=== PATIENT | female | born 1965 | race Caucasian/White ===

== ENCOUNTER 2018-01-29 11:58 | Inpatient (IN) | payer MEDICARE ==
[2018-01-29] MEDS ORDERED: Metoclopramide 10 MG/2 ML SDV IVPUSH PRN (12:26)
[2018-01-29] MEDS ORDERED: Lactated Ringers 1,000 ML IV ONE (12:30)
[2018-01-29] MEDS ORDERED: Iohexol 300 MG/ML 30 ML Bottle PO ONE (12:37)
[2018-01-29] MEDS: Pantoprazole 40 MG Vial IV SCH (14:14)
[2018-01-29] MEDS ORDERED: Iopamidol 612 MG/ML 150 ML Bottle IV PRN (14:26)
[2018-01-29] MEDS ORDERED: Sodium Chloride 0.9% 10 ML Syringe FLUSH PRN (14:26)
--- NOTE | 2018-01-29 15:01 | CT ---
Abdomen Pelvis w Cont HISTORY: Abdominal pain COMPARISON: CT scan 09/30/2007. FINDINGS: Prior gastric bypass. There is dilated loops of large bowel that is primarily fluid-filled. Sigmoid colon is redundant. The small bowel is normal in caliber distal bypass anastomosis appears u nremarkable. There is some new intrahepatic and extrahepatic bile duct dilatation. No focal liver lesions seen. Prior cholecystectomy. The spleen, pancreas, adrenal glands, abdominal a roseann and kidneys appear unremarkable. Pelvis unremarkable. Impression: 1. Slightly dilated colon that is primarily fluid-filled. The mid to distal sigmoid colon is normal i n caliber which could represent peristalsis or spasm. This could are present mild colonic ileus. No e vidence for small bowel dilatation. 2. New intrahepatic and extrahepatic bile duct dilatation without obstructing stone or mass. This cou ld be correlated with liver enzymes studies. 3. Prior gastric bypass..
[2018-01-29] MEDS: Dextrose 5%-Lactated Ringers 1,000 ML IV SCH (18:00)
[2018-01-29] MEDS ORDERED: Potassium Chloride 100 ML ONE (18:32)
[2018-01-29] MEDS: oxyCODONE 5 MG Tab PO PRN (18:36)
[2018-01-29] MEDS: Potassium Chloride 20 MEQ, Lidocaine 1% 2 ML in Sodium Chloride 0.9% 100 ML IV SCH ×2 (18:39→19:13)
[2018-01-29] MEDS ORDERED: MELATONIN PO SCH (21:00)
[2018-01-29] MEDS ORDERED: PYRIDOXINE HCL PO SCH (21:00)
[2018-01-29] MEDS: Triamcinolone Acetonide 0.1% Crm 15 GM Tube TOP SCH (21:33)
[2018-01-29] MEDS: Methocarbamol 500 MG Tab PO SCH (21:38)
[2018-01-29] MEDS: hydrOXYzine HCl 25 MG Tab PO PRN (21:38)
[2018-01-29] MEDS: ClonazePAM 1 MG Tab PO SCH (21:38)
[2018-01-29] MEDS: Ondansetron 4 MG/2 ML SDV IVPUSH PRN (22:12)
[2018-01-30] MEDS: Dextrose 5%-Lactated Ringers 1,000 ML IV SCH ×5 (02:56→23:39)
[2018-01-30] MEDS: Potassium Chloride 20 MEQ, Lidocaine 1% 2 ML in Sodium Chloride 0.9% 100 ML IV SCH (03:04)
[2018-01-30] MEDS: oxyCODONE 5 MG Tab PO PRN ×2 (03:10→13:46)
[2018-01-30] MEDS: Pantoprazole 40 MG Vial IV SCH ×2 (03:39→16:39)
[2018-01-30] MEDS: ClonazePAM 1 MG Tab PO SCH ×3 (08:44→20:59)
[2018-01-30] MEDS: Propranolol 60 MG Cap.ER PO SCH (08:44)
[2018-01-30] MEDS: Methocarbamol 500 MG Tab PO SCH ×3 (08:44→20:59)
[2018-01-30] MEDS: Desvenlafaxine 50 MG Tab.ER PO SCH (08:44)
[2018-01-30] MEDS ORDERED: Triamcinolone Acetonide 0.1% Crm 15 GM Tube TOP PRN (09:19)
[2018-01-30] MEDS: hydrOXYzine HCl 25 MG Tab PO PRN (09:42)
[2018-01-30] MEDS ORDERED: MVI, Adult with Vitamin K 10 ML, Thiamine 100 MG, Magnesium Sulfate 2 GM, Folic Acid 1 ... IV ONE ×5 (10:00)
[2018-01-30] MEDS: Triamcinolone Acetonide 0.1% Crm 15 GM Tube TOP SCH (10:56)
[2018-01-30] MEDS ORDERED: ClonazePAM 1 MG Tab PO ONE (16:15)
[2018-01-30] MEDS: hydrOXYzine HCl 25 MG Tab PO SCH ×2 (16:38→21:00)
[2018-01-30] MEDS: Melatonin 3 MG Tab PO SCH (21:00)
[2018-01-31] MEDS: oxyCODONE 5 MG Tab PO PRN ×4 (00:15→22:27)
[2018-01-31] MEDS: Pantoprazole 40 MG Vial IV SCH ×2 (03:30→14:46)
[2018-01-31] MEDS: Dextrose 5%-Lactated Ringers 1,000 ML IV SCH ×3 (06:17→20:50)
[2018-01-31] MEDS ORDERED: Midazolam 1 MG/ML 2 ML SDV ONE (07:06)
[2018-01-31] MEDS ORDERED: fentaNYL 100 MCG/2 ML SDV ONE (07:06)
[2018-01-31] MEDS ORDERED: Propofol 200 MG/20 ML SDV ONE (07:07)
[2018-01-31] MEDS: Methocarbamol 500 MG Tab PO SCH ×4 (07:19→22:08)
[2018-01-31] MEDS ORDERED: Glycopyrrolate 0.2 MG/ML 2 ML SDV IVPUSH ONE (08:00)
[2018-01-31] MEDS: hydrOXYzine HCl 25 MG Tab PO SCH ×3 (09:25→22:08)
[2018-01-31] MEDS: Desvenlafaxine 50 MG Tab.ER PO SCH (09:26)
[2018-01-31] MEDS: Propranolol 60 MG Cap.ER PO SCH (09:26)
[2018-01-31] MEDS: ClonazePAM 1 MG Tab PO SCH ×3 (09:39→22:15)
[2018-01-31] MEDS: Ondansetron 4 MG/2 ML SDV IVPUSH PRN ×3 (10:32→20:09)
[2018-01-31] MEDS: Calcium Carbonate 500 MG Tab.Chew PO PRN ×2 (16:02→22:29)
[2018-01-31] MEDS: Magnesium Citrate Solution 296 ML Bottle PO SCH ×3 (16:03→20:09)
[2018-01-31] MEDS ORDERED: Bisacodyl 5 MG Tab PO ONE (18:00)
[2018-01-31] MEDS: Melatonin 3 MG Tab PO SCH (22:07)
[2018-02-01] MEDS: Pantoprazole 40 MG Vial IV SCH (02:27)
[2018-02-01] MEDS: Dextrose 5%-Lactated Ringers 1,000 ML IV SCH ×2 (06:18→15:32)
[2018-02-01] MEDS ORDERED: Midazolam 1 MG/ML 2 ML SDV ONE (06:48)
[2018-02-01] MEDS ORDERED: fentaNYL 100 MCG/2 ML SDV ONE (06:48)
[2018-02-01] MEDS ORDERED: Propofol 200 MG/20 ML SDV ONE (06:49)
[2018-02-01] MEDS: hydrOXYzine HCl 25 MG Tab PO SCH ×3 (09:24→20:39)
[2018-02-01] MEDS: Desvenlafaxine 50 MG Tab.ER PO SCH (09:24)
[2018-02-01] MEDS: Propranolol 60 MG Cap.ER PO SCH (09:24)
[2018-02-01] MEDS: ClonazePAM 1 MG Tab PO SCH ×3 (09:24→20:38)
[2018-02-01] MEDS: Methocarbamol 500 MG Tab PO SCH ×3 (09:24→20:38)
[2018-02-01] MEDS: oxyCODONE 5 MG Tab PO PRN ×2 (09:31→15:31)
--- NOTE | 2018-02-01 14:57 | PN ---
DATE OF SERVICE: 01/31/2018 The patient has been afebrile with stable vital signs. She continues to have some frequent loose bowel movements and passed undigested peas and other vegetables that she ate last night. The plan will be to proceed with an upper GI endoscopy today. If this is negative, we will most likely proceed with a colonoscopy tomorrow so as to rule out problems such as colitis and such. Uriel Peña MD /[id number]
[2018-02-01] MEDS: Pantoprazole 40 MG Tab.CR PO SCH (15:39)
[2018-02-01] MEDS: Melatonin 3 MG Tab PO SCH (20:38)
[2018-02-02] MEDS: oxyCODONE 5 MG Tab PO PRN ×2 (00:26→06:24)
[2018-02-02] MEDS: Dextrose 5%-Lactated Ringers 1,000 ML IV SCH (01:51)
[2018-02-02] MEDS: Pantoprazole 40 MG Tab.CR PO SCH (07:37)
[2018-02-02] MEDS: Methocarbamol 500 MG Tab PO SCH (07:38)
[2018-02-02] MEDS ORDERED: Ondansetron 4 MG Tab.DIS PO PRN (09:02)
[2018-02-02] MEDS: hydrOXYzine HCl 25 MG Tab PO SCH (09:28)
[2018-02-02] MEDS: Desvenlafaxine 50 MG Tab.ER PO SCH (09:29)
[2018-02-02] MEDS: ClonazePAM 1 MG Tab PO SCH (09:29)
[2018-02-02] MEDS: Propranolol 60 MG Cap.ER PO SCH (09:29)
--- NOTE | 2018-02-02 09:46 | PN ---
DATE OF SERVICE: 01/30/2018 HISTORY OF PRESENT ILLNESS: Le reports pain on the pain scale of 1-10, as 6/10. She is getting oxycodone for pain 10 mg every 6 hours. She has had no nausea during the night. Pain today is in her lower right and left abdominal quadrants. She has had 3 bowel movements since admission and voiding without difficulty. Oral intake is 240, which she is on ice chips. Urine output was 2,275. REVIEW OF SYSTEMS: LUNGS: Denies any chest pain or shortness of breath. No cough. EXTREMITIES: Chronic back and leg pain. SKIN: Without rash. All 12 systems were reviewed and negative for any other pertinent positives and negatives. OBJECTIVE: GENERAL: Le is a 52-year-old female. She is lying in bed with a stocking cap pulled over her eyes. Denies headache. VITAL SIGNS: TPR is 97.6, 67, 16, blood pressure 120/74. HEENT: Negative. NECK: Supple. HEART: Regular rate and rhythm. LUNGS: Clear. ABDOMEN: Minimal tenderness in the low abdominal quadrants, flat, nondistended. EXTREMITIES: SCDs are on. There is no peripheral edema. DIAGNOSTIC DATA: CT results revealed slightly dilated colon that is primarily fluid-filled. The mid to distal sigmoid colon is normal in caliber, which would represent peristalsis or spasm. This could be mild colonic ileus. No evidence of small bowel dilatation. New intrahepatic and extrahepatic bile duct dilation without obstructing stone or mass. ASSESSMENT: 1. Generalized abdominal pain on admission. 2. Unspecified diarrhea, Clostridium difficile negative. 3. Intractable nausea, vomiting, and dry heaves. 4. SP Sue-en-Y gastric bypass surgery. 5. Vitamin B12 deficiency. 6. Vitamin D deficiency. 7. Dehydration, resolved with IV fluids. 8. Chronic back pain and chronic myelocytic leukemia. 9. Elevated liver function tests. AST was 149, ALT 149, alkaline phosphatase 275, and these were decreased today to 56, 83, and 189 respectively. PLAN: 1. Regular diet and she can choose what sounds good to her. 2. Communication order written to keep track of number of stools. 3. Check CBC, CMP, magnesium, and phosphorus in a.m. 4. We will consult with Uriel Peña M.D. later today. Good pulmonary toilet. Jennifer Trinidad PA-C /[id number]
--- NOTE | 2018-02-02 10:58 | OR ---
DATE OF PROCEDURE: 02/01/2018 PREOPERATIVE DIAGNOSIS: Recent diarrhea/frequent loose bowel movements, possible colitis on CT scan. POSTOPERATIVE DIAGNOSIS: Grossly normal colorectal examination. OPERATIVE PROCEDURE: Flexible colonoscopy with: 1. Random biopsies of colon and rectum to rule out microscopic colitis. 2. Stool collection for C and S and C. difficile enterotoxin assay. ANESTHESIA: IV sedation. INDICATION FOR PROCEDURE: Please see the attached progress notes. Potential risks of the procedure including bleeding and perforation were discussed, and the patient wishes to proceed. DETAILS OF PROCEDURE: The patient was taken to the operating room and placed in a left lateral decubitus position. IV sedation was administered, after which the initial digital rectal exam was performed and it was unremarkable. Colonoscope was then passed into the rectum with retroflexion revealing uncomplicated hemorrhoidal columns. The scope was eventually passed through the ileocecal valve. To that level, the prep was quite good, there was only a small amount of faintly green liquid stool, some of this was evacuated and sent for cultures and C. difficile enterotoxin assay. The mucosa however was otherwise entirely normal. There were no areas of colitis grossly evident, and no polyps or other signs of neoplasia, and no diverticula identified. As one moved the scope backward, random colorectal biopsies through the length of the colon and rectum were obtained to rule out microscopic colitis. Minimal bleeding from the biopsy site was seen and the procedure was then concluded. The patient was taken to the recovery room in satisfactory condition. Uriel Pñea MD /[id number]
--- NOTE | 2018-02-02 12:26 | PN ---
DATE OF SERVICE: 02/01/2018 The patient has been afebrile with stable vital signs. She did have a fair bit of liquid intake yesterday and had a colonoscopy this morning, which was grossly normal. Given this, we will try feeding her today. We will move up to a solid diet and see how that goes upper and lower endoscopy thus far have been basically negative. Uriel Peña MD /[id number]
--- NOTE | 2018-02-03 10:41 | DISCH ---
ADMISSION DIAGNOSES: Nausea and vomiting, weight loss of 30 pounds, generalized abdominal pain, dehydration, SP Sue-en-Y gastric bypass surgery, unspecified surgical malabsorption, B12 deficiency, vitamin D deficiency, chronic pain on "treatment." DISCHARGE DIAGNOSES: EGD on 01/31/2018 and colonoscopy with biopsies 02/02/2018. Continuation of frequent loose stools. No resolution of nausea and vomiting. HISTORY: Le presented to the clinic with a month long history of diarrhea, nausea, and vomiting. She had several visits to the emergency department in [facility]. She was advised to come back to [place] to the [facility]. She was admitted to the hospital on 01/29/2018. She had an EGD and colonoscopy, both of which were negative. A CT scan was negative, and generalized abdominal pain resolved. She had no further nausea or vomiting. She continued to have loose stools but improved to manageable. REVIEW OF SYSTEMS: CONSTITUTIONAL: No fever, chills, or night sweats. SKIN: No rashes or pigment changes. HEENT: Negative for headache, ear pain, loss of hearing, blurred or double vision. CARDIOVASCULAR: No chest pain, shortness of breath, or palpitations. RESPIRATORY: No cough. ENDOCRINE: Negative. HEMATOLOGY: CML in remission. LYMPHATICS: Denies any lymph node tenderness. : Negative. MUSCULOSKELETAL: Chronic low back pain, shoulder pain, and joint pain. NEUROLOGIC: Negative. PSYCHIATRIC: Major depression in remission. Remainder of review of systems is negative for any pertinent positives and negatives. OBJECTIVE: GENERAL: Le Sunshine is a 52-year-old female. She is alert and orientated. VITAL SIGNS: Height is 5 feet 5 inches. Weight is 213 pounds. TPR is 97.8, 74, 14, blood pressure 128/57. HEENT: Negative. NECK: Supple. HEART: Regular rate and rhythm. LUNGS: Clear. ABDOMEN: Very minimally tender in all 4 quadrants. : Deferred. EXTREMITIES: Negative. NEUROLOGIC: Cranial nerves II through XII intact. PSYCHIATRIC: Negative. DISPOSITION: Discharged to home. CONDITION: Stable and improving. FOLLOWUP APPOINTMENT: With Jennifer Trinidad PA-C at [facility] on 02/10/2018 at 9:15 a.m. She is to be scheduled for a nutritional support group, with Jodie Treadbar, RD, from 10:00 a.m. to 11:00 a.m. the same day. MEDICATIONS ON DISCHARGE: There are no new prescriptions. She is to increase her probiotic to 2 b.i.d. Continue same medications of ascorbic acid 1000 mg daily, biotin 14600 mcg oral daily, calcium citrate 1 tablet twice daily, vitamin D 5000 international units daily, cranberry extract one daily, B12 2500 mcg oral daily, Pristiq 50 mg oral daily, Tofranil 150 mg oral every evening, magnesium oxide 400 at bedtime, melatonin 10 mg at bedtime, Robaxin 500 mg oral at bedtime, Robaxin 2 tablets oral before breakfast and 500 mg oral before dinner, multivitamin 1 tablet twice a day changed to chewable omega-3 at 1000 mg oral daily, Zofran continue as before 4 mg every 8 hours p.r.n. nausea, potassium gluconate 99 mg oral daily as needed for hypokalemia, Inderal LA 60 mg oral daily, triamcinolone cream 0.1% topical twice a day, vitamin A 8000 international units, zinc 50 mg oral daily, Klonopin 1 mg 3 times a day, hydroxyzine 150 mg 3 times a day, oxycodone 10 mg oral q.6 hours p.r.n. pain. DIET: Step 4 gastric bypass diet. ACTIVITY: As tolerated, may shower. DISCHARGE INSTRUCTIONS: Notify provider if any fever, increased pain, nausea, or vomiting. FOLLOWUP: To follow up with the pain specialist and primary care provider for continued care.
[2018-02-05 10:15] LABS: AMITRIPTYLINE Negative; CLOMIPRAMINE Negative; CYCLOBENZAPRINE Negative; DESIPRAMINE Positive; DESIPRAMINE CONF 1620 ng/mL; DOXEPIN Negative; IMIPRAMINE Positive; IMIPRAMINE CONF 1360 ng/mL; NORDOXEPIN Negative; NORTRIPTYLINE Negative; PROTRIPTYLINE Negative; TRICYCLIC ANTIDEP Positive; TRIMIPRAMINE Negative
--- NOTE | 2018-02-10 08:53 | OR ---
DATE OF PROCEDURE: 01/31/2018 PREOPERATIVE DIAGNOSIS: Upper abdominal pain. POSTOPERATIVE DIAGNOSES: Postprandial abdominal pain with mild pouch gastritis. OPERATIVE PROCEDURE: Upper gastrointestinal endoscopy with biopsies of gastric pouch for CLOtest. ANESTHESIA: IV sedation. INDICATION FOR PROCEDURE: The patient was admitted overnight with postprandial abdominal pain. Initially, she had workup. The plan is to proceed with an upper GI endoscopy with biopsies and/or dilation as indicated. Potential risks of the procedure including bleeding and perforation were discussed, and the patient wishes to proceed. DETAILS OF PROCEDURE: The patient was taken to the operating room and placed in a left lateral decubitus position. IV sedation was administered, after which the upper GI endoscope was passed orally through the length of the esophagus and into the gastric pouch and from there through the gastrojejunostomy, roughly 20 cm into the Sue limb. Findings included normal esophagus, EG junction, and the gastric pouch showed some very mild redness. The gastrojejunostomy was wide open and free of any adjacent marginal ulcers and visualized portion of the jejunum was unremarkable. There was no backup of any fluid or bile suggestive of a bowel obstruction at that level. Biopsies were then obtained from the gastric pouch, and the procedure was concluded. The patient was taken to the recovery room in a satisfactory condition. in addition to the above symptoms, frequent loose bowel movements and possible thickening of the colon on CT scan. We will proceed with a colonoscopy tomorrow after she is prepped today. Uriel Peña MD /[id number]
== END 2018-02-02 10:15 | disposition home or self-care (01) | DRG 392 ==
LOC: JP.2SS 11:58
PROVIDERS: ADMIT Surgery; ATTEND Surgery
PROC: 0DB68ZX Excision of Stomach, Via Natural or Artificial Opening Endoscopic, Diagnostic (ICD-10-PCS; 2018-01-31)
PROC: 0DBP8ZX Excision of Rectum, Via Natural or Artificial Opening Endoscopic, Diagnostic (ICD-10-PCS; principal; 2018-02-01)
PROC: 0DBE8ZX Excision of Large Intestine, Via Natural or Artificial Opening Endoscopic, Diagnostic (ICD-10-PCS; 2018-02-01)
DX: R10.84 Generalized abdominal pain (principal); K91.2 Postsurgical malabsorption, not elsewhere classified; R19.7 Diarrhea, unspecified; R11.2 Nausea with vomiting, unspecified; E86.0 Dehydration; Z85.6 Personal history of leukemia; M54.9 Dorsalgia, unspecified; G89.29 Other chronic pain; Z79.891 Long term (current) use of opiate analgesic; Z98.84 Bariatric surgery status; Z98.0 Intestinal bypass and anastomosis status; E53.8 Deficiency of other specified B group vitamins; E55.9 Vitamin D deficiency, unspecified; R79.89 Other specified abnormal findings of blood chemistry
CPT/HCPCS: 36415; 74177; 74177-26; 80053; 80305; 82150; 82306; 82607; 82728; 82746; 83690; 83735; 84100; 84425; 85027; 87046; 87081; 87177; 87209; 87425; 87493; 87899; 88305; A9270-GY; C9113; G0479; G0480; J2250; J2405; J2704; J2765; J3010; J3411; J3475; J3480; J3490; J7030; J7042; J7050; J7120; Q9965

== ENCOUNTER 2019-07-30 08:15 | Day surgery (SDC) | payer MEDICARE ==
[2019-07-30] MEDS ORDERED: Lactated Ringers 1,000 ML IV SCH (09:00)
[2019-07-30] MEDS ORDERED: Cyanocobalamin (Vitamin B12) 1,000 MCG/ML SDV IM ONE (09:30)
[2019-07-30] MEDS ORDERED: fentaNYL 100 MCG/2 ML SDV ONE (09:33)
[2019-07-30] MEDS ORDERED: Propofol 200 MG/20 ML SDV ONE (09:34)
[2019-07-30] MEDS ORDERED: Midazolam 1 MG/ML 2 ML SDV ONE (09:34)
[2019-07-30] MEDS ORDERED: Glycopyrrolate 0.2 MG/ML 2 ML SDV IVPUSH ONE (09:45)
[2019-07-30] MEDS ORDERED: MVI, Adult with Vitamin K 10 ML, Thiamine 200 MG, Chromium/Copper/Mang/Selen/Zn 1 ML in... IV ONE ×4 (10:00)
--- NOTE | 2019-08-02 08:09 | OR ---
DATE OF PROCEDURE: 07/30/2019 SURGEON: Uriel Peña MD PREOPERATIVE DIAGNOSIS: Dysphagia and epigastric pain, status post Sue-en-Y gastric bypass. POSTOPERATIVE DIAGNOSES: 1. Mild thickening and narrowing of distal esophagus. 2. Mild patchy enteritis in the proximal Sue limb. OPERATIVE PROCEDURE: Upper GI endoscopy with; 1. Dilation of distal esophagus (17322). 2. Biopsies of areas of enteritis involving proximal Sue limb (19473). ANESTHESIA: IV sedation. INDICATION FOR PROCEDURE: This is a 54-year-old status post previous Sue-en-Y gastric bypass who for several weeks is having problems with dysphagia of distal and mid esophagus along with some burning pain in the epigastrium with oral intake. She was started on omeprazole 40 mg a day on 07/13/2019, and has noted some improvement in those symptoms in the interim. The plan is to proceed with upper GI endoscopy with dilation and/or biopsies as indicated. Potential risks including bleeding and perforation were discussed, and the patient wishes to proceed. DETAILS OF PROCEDURE: The patient was taken to the operating room, placed in a left lateral decubitus position. IV sedation was administered, after which the upper GI endoscope was passed orally through the length of the esophagus into the gastric pouch and from there roughly 20 cm into the area of Sue limb. Findings included some thickening and narrowing of the distal esophagus. This was fairly nonspecific in the overall appearance and was not associated with any gross mucosal inflammation. The gastric pouch was unremarkable as was the gastrojejunostomy. In the proximal stomach, there were patchy reddened areas in the proximal Sue limb without erosions or ulcers. At this point, biopsies were taken from the areas of the probable enteritis in the Sue limb and then gastrointestinal catheter was then centered across the distal esophagus with a 54-Amharic size. This was held in position for 1 minute, after which balloon catheter was deflated and withdrawn and the procedure was then concluded. At this point, the findings were fairly nonspecific. We will have the patient up her omeprazole dose to 40 mg b.i.d. and she will be following up with Jennifer Trinidad at [facility] in [place] next month. If she continues to be symptomatic, one might add something like Carafate to the regimen. Uriel Peña MD /[id number]
== END 2019-07-30 13:45 | disposition home or self-care (01) ==
LOC: JP.SDS 08:15
PROVIDERS: ATTEND Surgery
DX: K95.89 Other complications of other bariatric procedure (principal); K22.2 Esophageal obstruction; K21.9 Gastro-esophageal reflux disease without esophagitis; J45.909 Unspecified asthma, uncomplicated; Z98.84 Bariatric surgery status
CPT/HCPCS: 88305; J2250; J2704; J3010; J3411; J3420; J3490; J7120